=== PATIENT | male | born 1975 | race Caucasian/White ===

== ENCOUNTER 2017-03-18 10:22 | Emergency (ER) | payer OTHER ==
[~2017-03-18] VITALS: Ht 182.8 cm; Wt 140.6 kg
[~2017-03-18 10:22] MED LIST: AMLODIPINE5 MG PO; BACTRIM DS 8001 TA1 PO; BUSPAR10 MG PO; BUSPAR5 MG PO; CIPROFLOXACIN500 MG PO; COREG3.125 MG PO; DO NOT PROFILE T1 EA PO; IBUPROFEN600 MG PO; MOTRIN800 MG PO; NKHM; QUINAPRIL20 MG PO; ROBAXIN750 MG PO; ULTRAM50 MG PO; VICODIN 5/500 505 MG PO; VICODIN ES 7501 TAB PO; VOLTAREN50 M1 PO; ZITHROMAX Z PA250 MG PO
[2017-03-18] MEDS ORDERED: NORCO 5-325 TA1 EACH PO (12:39)
== END 2017-03-18 13:49 | disposition home or self-care (01) ==
LOC: ED 10:22
DX: S22.42XA Multiple fractures of ribs, left side, initial encounter for closed fracture (principal); F17.200 Nicotine dependence, unspecified, uncomplicated; Z79.899 Other long term (current) drug therapy; Z88.0 Allergy status to penicillin; W10.8XXA Fall (on) (from) other stairs and steps, initial encounter; Y93.89 Activity, other specified; Y92.89 Other specified places as the place of occurrence of the external cause; Y99.8 Other external cause status

== ENCOUNTER 2017-11-05 04:44 | Inpatient (IN) | payer OTHER ==
[2017-11-05] VITALS (11 sets, daily range): BP systolic 105–162; BP diastolic 56–109
[~2017-11-05] VITALS: Ht 182.8 cm; Wt 154.7 kg
--- NOTE | ~2017-11-05 | O ---
[place], [place] OPERATIVE NOTE [id number] UNIT #: [id number] ROOM: [facility] DOCTOR: AINSLEY CHISHOLM DO BIRTHDATE: [birth year] DOS: 11/06/2017 PREOPERATIVE DIAGNOSIS: Right medial and posterior malleolar fracture with widened ankle mortise and displaced talus. POSTOPERATIVE DIAGNOSIS: Right medial and posterior malleolar fracture with widened ankle mortise and displaced talus. OPERATIVE PROCEDURE: Medial malleolar fracture, open reduction and internal fixation with reduction of the talus and posterior malleolus and syndesmotic screw fixation. SURGEON: Ainsley Chisholm DO CAR RENTAL MANAGER: Khai Villalba ANESTHESIA: CONG Garcia, general endotracheal. INDICATIONS: The patient is a 42-year-old male with a history of a twisting injury to the right ankle, early 11/05/2017. The patient was intoxicated at the time of admission. The risks and benefits of the procedure were explained to the patient preoperatively including healing and rehabilitation. Preoperative labs and x-rays were obtained including preoperative optimization. DESCRIPTION OF PROCEDURE: The right ankle was evaluated in the holding room and marked preoperatively. The patient was brought to the operative suite, placed supine on the operative table and a general anesthetic with endotracheal intubation was performed. The patient received clindamycin 900 mg preoperatively. The ankle was evaluated under C-arm after prepped and draped in the usual orthopedic manner. The extremity was exsanguinated and the tourniquet was inflated to 350 mmHg. A medial incision was made and subcutaneous tissue was spread down to the level of the flexor retinaculum and the periosteum. There was noted to be a significant displacement of the medial malleolus and hemarthrosis was present. The flexor tendons were also noted to be displaced into the joint. The area was copiously irrigated with normal saline and the talus was reduced as was the medial malleolar fracture. Positioning was evaluated under C-arm in multiple planes. Two partially threaded K-wires were placed from distal to proximal through the medial malleolus and into the tibia. The positioning was evaluated under C-arm in multiple planes and found to be adequate. The lengths were measured. The cannulated drill was used over the K-wire and each K-wire was utilized to place a 15 mm cannulated screw. This was evaluated under C-arm and found to have an adequate reduction and positioning. The lateral side was then approached and a small 1-2 cm incision was made over the distal fibula metaphysis. Subcutaneous tissue was spread down to the level of the bone. A partially threaded K-wire was placed from lateral to medial through the fibula and into the tibial metaphyseal region. This was evaluated under C-arm in multiple planes. The length was measured. This was overdrilled with a cannulated drill and a single 72 mm cannulated screw was used to stabilize the ankle syndesmosis. When this was completed, the K-wires were [place], [place] OPERATIVE NOTE NAME: DEBRA MONTIEL UNIT #: [id number] ROOM: [facility] DOCTOR: AINSLEY CHISHOLM DO BIRTHDATE: [birth year] removed and the area was copiously irrigated with normal saline. Final x-ray was obtained in an AP and lateral position. The ankle was stressed both in inversion and eversion and found to be stable. The medial side of the ankle was closed using 4-0 Vicryl followed by 2-0 Vicryl and skin dano. The lateral incision was closed with 2-0 Vicryl and a single skin staple. The area about the incisions and the ankle joint itself were injected with Marcaine 0.5% plain. The dressing was completed with Xeroform, 4 x 4s, cast padding, ABDs, and a well-padded posterior splint with a sugar tong for medial and lateral stability. The dressing was completed with an Hilario bandage. Tourniquet was released prior to application of the splints. The anesthetic was reversed. The patient was extubated and taken to the recovery room in satisfactory condition. Sponge and needle count correct. ESTIMATED BLOOD LOSS: 10 mL. DRAINS: None. PACKING: None. COMPLICATIONS: None. FINDINGS: Medial malleolus fracture with widened mortise, posterior malleolar fracture and displaced talus. AINSLEY CHISHOLM DO CM:OPRECORD:OPERATIVE NOTE [id number] AINSLEY CHISHOLM DO 11/06/17 1827 interface
[~2017-11-05 04:44] MED LIST changes: +NORCO 5-325 TA1 EACH PO
[2017-11-05 05:33] LABS: BASO # 0.1 10*3/uL (0.0-0.1); BASO % 0.6 % (0.0-1.0); EOS # 0.3 10*3/uL (0.0-0.4); EOS % 3.7 % (1.0-4.0); HEMATOCRIT 41.4 % (42.0-52.0); HEMOGLOBIN 14.3 g/dl (14.0-18.0); LYMPH # 2.3 10*3/uL (1.3-4.4); LYMPH % 30.2 % (27.0-41.0); MEAN CELL VOLUME 87.7 fl (80.0-94.0); MEAN CORPUSCULAR HGB 30.3 pg (27.0-31.0); MEAN CORPUSCULAR HGB CONC 34.5 g/dl (33.0-37.0); MEAN PLATELET VOLUME 10.5 fl (9.6-12.3); MONO # 0.5 10*3/uL (0.1-1.0); MONO % 6.7 % (3.0-9.0); NEUT # 4.5 10*3/uL (2.3-7.9); NEUT % 58.4 % (47.0-73.0); PLATELET COUNT AUTOMATED 190 10*3/uL (130-400); RED BLOOD COUNT 4.72 10*6/uL (4.50-5.90); RED CELL DISTRI WIDTH 13.1 % (0-14.5); WHITE BLOOD COUNT 7.8 10*3/uL (4.8-10.8)
[2017-11-05 05:49] LABS: BILIRUBIN NEGATIVE (NEGATIVE); BLOOD NEGATIVE (NEGATIVE); CLARITY CLEAR (CLEAR); COLOR YELLOW (YELLOW); GLUCOSE NEGATIVE (NEGATIVE); KETONE NEGATIVE (NEGATIVE); LEUKO ESTERASE NEGATIVE (NEGATIVE); NITRITE NEGATIVE (NEGATIVE); SPECIFIC GRAVITY <= 1.005 (1.005-1.030)
[2017-11-05 05:51] LABS: ALBUMIN 3.6 gm/dl (3.1-4.5); ALKALINE PHOSPHATASE 105 U/L (45-117); BUN 12 mg/dl (7-24); CHLORIDE 89 mmol/L (98-107); CREATININE 0.92 mg/dL (0.70-1.30); POTASSIUM 3.3 mmol/L (3.5-5.1); SGOT/AST 27 IU/L (3-35); SGPT/ALT 30 U/L (12-78); SODIUM 127 mmol/L (136-145); TOTAL PROTEIN 7.2 gm/dL (6.4-8.2)
[2017-11-05 05:58] LABS: URINE AMPHETAMINES < 1000 (1000ng/ml); URINE BARBITURATES < 200 (200ng/ml); URINE BENZODIAZEPINES < 200 (200ng/ml); URINE CANNABINOIDS (THC) < 50 (50ng/ml); URINE COCAINE < 300 (300ng/ml); URINE METHADONE < 300 (300ng/ml); URINE OPIATES < 300 (300ng/ml); URINE PHENCYCLIDINE < 25 (25ng/ml)
[2017-11-05] MEDS ORDERED: CARVEDILOL25 MG PO (10:58)
[2017-11-05] MEDS ORDERED: CHLORTHALIDONE25 MG PO (10:58)
[2017-11-05] MEDS ORDERED: ALPRAZOLAM0.5 M3 PO (14:04)
[2017-11-05] MEDS ORDERED: AMLODIPINE BESY10 MG PO (14:04)
[2017-11-06] VITALS (13 sets, daily range): BP systolic 99–171; BP diastolic 61–109
[2017-11-06 06:50] LABS: BASO % 0.5 % (0.0-1.0); EOS # 0.2 10*3/uL (0.0-0.4); EOS % 2.6 % (1.0-4.0); HEMATOCRIT 42.9 % (42.0-52.0); HEMOGLOBIN 14.4 g/dl (14.0-18.0); LYMPH # 0.9 10*3/uL (1.3-4.4); LYMPH % 15.7 % (27.0-41.0); MEAN CELL VOLUME 90.1 fl (80.0-94.0); MEAN CORPUSCULAR HGB 30.3 pg (27.0-31.0); MEAN CORPUSCULAR HGB CONC 33.6 g/dl (33.0-37.0); MEAN PLATELET VOLUME 10.3 fl (9.6-12.3); MONO # 0.6 10*3/uL (0.1-1.0); MONO % 10.4 % (3.0-9.0); NEUT # 4.1 10*3/uL (2.3-7.9); NEUT % 70.5 % (47.0-73.0); PLATELET COUNT AUTOMATED 161 10*3/uL (130-400); RED BLOOD COUNT 4.76 10*6/uL (4.50-5.90); RED CELL DISTRI WIDTH 13.2 % (0-14.5); WHITE BLOOD COUNT 5.8 10*3/uL (4.8-10.8)
[2017-11-06 07:18] LABS: ACT PARTIAL THROMBO TIME 24.8 SECONDS (20.8-31.5)
[2017-11-06 07:25] LABS: BUN 13 mg/dl (7-24); CHLORIDE 100 mmol/L (98-107); CHOLESTEROL 182 mg/dL (<200); CREATININE 0.77 mg/dL (0.70-1.30); HDL CHOLESTEROL 44 mg/dl (40-60); LDL CHOLESTEROL 123 mg/dL (9-159); POTASSIUM 3.8 mmol/L (3.5-5.1); SODIUM 137 mmol/L (136-145); TRIGLYCERIDES 76 mg/dl (<150); VLDL CHOLESTEROL 15 mg/dL (6-40)
[2017-11-06 08:16] LABS: VITAMIN D, 25-HYDROXY 18.7 ng/mL (30-100)
[2017-11-06] MEDS ORDERED: ASPIR-TRIN325 MG PO (10:23)
[2017-11-06] MEDS ORDERED: ZOLOFT100 MG PO (10:30)
[2017-11-07] VITALS: BP 126/81
[2017-11-07 06:30] LABS: BASO % 0.3 % (0.0-1.0); EOS # 0.2 10*3/uL (0.0-0.4); EOS % 2.2 % (1.0-4.0); HEMATOCRIT 40.4 % (42.0-52.0); HEMOGLOBIN 13.4 g/dl (14.0-18.0); LYMPH # 0.9 10*3/uL (1.3-4.4); LYMPH % 9.6 % (27.0-41.0); MEAN CORPUSCULAR HGB 30.5 pg (27.0-31.0); MEAN CORPUSCULAR HGB CONC 33.2 g/dl (33.0-37.0); MEAN PLATELET VOLUME 10.8 fl (9.6-12.3); MONO # 0.9 10*3/uL (0.1-1.0); MONO % 9.9 % (3.0-9.0); NEUT # 6.9 10*3/uL (2.3-7.9); NEUT % 77.6 % (47.0-73.0); PLATELET COUNT AUTOMATED 153 10*3/uL (130-400); RED BLOOD COUNT 4.39 10*6/uL (4.50-5.90); RED CELL DISTRI WIDTH 13.4 % (0-14.5)
[2017-11-07 07:06] LABS: BUN 14 mg/dl (7-24); CHLORIDE 102 mmol/L (98-107); POTASSIUM 3.9 mmol/L (3.5-5.1); SODIUM 138 mmol/L (136-145)
[2017-11-07 07:08] LABS: CREATININE 0.85 mg/dL (0.70-1.30)
[2017-11-07 07:45] VITALS: BP 138/86
[2017-11-07 12:00] VITALS: BP 106/70
[2017-11-07 16:00] VITALS: BP 118/66
[2017-11-07] MEDS ORDERED: VITAMIN D-32000 UNIT PO (17:11)
== END 2017-11-07 18:14 | disposition home or self-care (01) | DRG 493 ==
LOC: ED 04:44 → EDHOLD 07:03 → 5E 07:03
PROVIDERS: Emergency Medicine Emergency Medical Services; Internal Medicine; Internal Medicine Nephrology
PROC: 0SSFXZZ Reposition Right Ankle Joint, External Approach (ICD-10-PCS; principal; 2017-11-05)
PROC: 2W3QX1Z Immobilization of Right Lower Leg using Splint (ICD-10-PCS; principal; 2017-11-05)
PROC: 0QSG04Z Reposition Right Tibia with Internal Fixation Device, Open Approach (ICD-10-PCS; 2017-11-06)
DX: S82.51XA Displaced fracture of medial malleolus of right tibia, initial encounter for closed fracture (principal); E87.1 Hypo-osmolality and hyponatremia; E87.8 Other disorders of electrolyte and fluid balance, not elsewhere classified; E83.51 Hypocalcemia; L40.9 Psoriasis, unspecified; F17.210 Nicotine dependence, cigarettes, uncomplicated; E87.6 Hypokalemia; R79.9 Abnormal finding of blood chemistry, unspecified; R00.0 Tachycardia, unspecified; F10.129 Alcohol abuse with intoxication, unspecified; I48.0 Paroxysmal atrial fibrillation; I10 Essential (primary) hypertension; Y90.8 Blood alcohol level of 240 mg/100 ml or more; F41.9 Anxiety disorder, unspecified; F32.9 Major depressive disorder, single episode, unspecified; W01.0XXA Fall on same level from slipping, tripping and stumbling without subsequent striking against object, initial encounter; Z88.0 Allergy status to penicillin; Z71.6 Tobacco abuse counseling; Z87.81 Personal history of (healed) traumatic fracture; Z79.01 Long term (current) use of anticoagulants; Z79.899 Other long term (current) drug therapy; Y93.89 Activity, other specified; Y92.89 Other specified places as the place of occurrence of the external cause; Y99.8 Other external cause status

== ENCOUNTER 2017-11-18 12:58 | Emergency (ER) | payer OTHER ==
[~2017-11-18] VITALS: Ht 182.8 cm; Wt 136.1 kg
--- NOTE | ~2017-11-18 | EKG ---
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
[2017-11-18 13:59] LABS: BASO # 0.1 10*3/uL (0.0-0.1); BASO % 0.6 % (0.0-1.0); EOS # 0.2 10*3/uL (0.0-0.4); EOS % 2.7 % (1.0-4.0); HEMATOCRIT 40.9 % (42.0-52.0); HEMOGLOBIN 13.9 g/dl (14.0-18.0); LYMPH # 1.3 10*3/uL (1.3-4.4); MEAN CELL VOLUME 89.7 fl (80.0-94.0); MEAN CORPUSCULAR HGB 30.5 pg (27.0-31.0); MEAN PLATELET VOLUME 9.8 fl (9.6-12.3); MONO # 0.3 10*3/uL (0.1-1.0); MONO % 3.9 % (3.0-9.0); NEUT # 6.5 10*3/uL (2.3-7.9); PLATELET COUNT AUTOMATED 342 10*3/uL (130-400); RED BLOOD COUNT 4.56 10*6/uL (4.50-5.90); RED CELL DISTRI WIDTH 12.6 % (0-14.5); WHITE BLOOD COUNT 8.4 10*3/uL (4.8-10.8)
[2017-11-18 14:09] LABS: ACT PARTIAL THROMBO TIME 22.3 SECONDS (20.8-31.5)
[2017-11-18 14:15] LABS: ALKALINE PHOSPHATASE 119 U/L (45-117); BUN 29 mg/dl (7-24); CHLORIDE 102 mmol/L (98-107); CREATININE 1.57 mg/dL (0.70-1.30); LIPASE 430 U/L (73-393); POTASSIUM 4.1 mmol/L (3.5-5.1); SGOT/AST 20 IU/L (3-35); SGPT/ALT 32 U/L (12-78); SODIUM 136 mmol/L (136-145)
[2017-11-18 14:18] LABS: TROPONIN I < 0.015 ng/ml (<0.045)
== END 2017-11-18 14:43 | disposition left against medical advice (07) ==
LOC: ED 12:58
PROVIDERS: Emergency Medicine
DX: I12.9 Hypertensive chronic kidney disease with stage 1 through stage 4 chronic kidney disease, or unspecified chronic kidney disease (principal); N18.9 Chronic kidney disease, unspecified; E86.0 Dehydration; I95.9 Hypotension, unspecified; R42 Dizziness and giddiness; I48.0 Paroxysmal atrial fibrillation; F17.200 Nicotine dependence, unspecified, uncomplicated; Z88.0 Allergy status to penicillin; Z79.899 Other long term (current) drug therapy; Z79.82 Long term (current) use of aspirin

== ENCOUNTER → 2017-11-18 | Outpatient (CLI) | payer OTHER ==
[~2017-11-18] MED LIST changes: +ALPRAZOLAM0.5 M3 PO; +AMLODIPINE BESY10 MG PO; +ASPIR-TRIN325 MG PO; +CARVEDILOL25 MG PO; +CHLORTHALIDONE25 MG PO; +VITAMIN D-32000 UNIT PO; +ZOLOFT100 MG PO
== END | disposition home or self-care (01) ==
LOC: ORTHO 03:32
DX: S82.51XD Displaced fracture of medial malleolus of right tibia, subsequent encounter for closed fracture with routine healing (principal); S93.01XD Subluxation of right ankle joint, subsequent encounter; Z91.81 History of falling; X58.XXXD Exposure to other specified factors, subsequent encounter

== ENCOUNTER → 2017-11-26 | Outpatient (CLI) | payer OTHER ==
[2017-11-26 11:47] LABS: BASO # 0.1 10*3/uL (0.0-0.1); BASO % 0.6 % (0.0-1.0); EOS # 0.2 10*3/uL (0.0-0.4); EOS % 2.4 % (1.0-4.0); HEMATOCRIT 43.8 % (42.0-52.0); HEMOGLOBIN 14.7 g/dl (14.0-18.0); LYMPH # 1.5 10*3/uL (1.3-4.4); LYMPH % 17.8 % (27.0-41.0); MEAN CELL VOLUME 89.4 fl (80.0-94.0); MEAN CORPUSCULAR HGB CONC 33.6 g/dl (33.0-37.0); MEAN PLATELET VOLUME 10.4 fl (9.6-12.3); MONO # 0.5 10*3/uL (0.1-1.0); MONO % 5.7 % (3.0-9.0); NEUT # 6.2 10*3/uL (2.3-7.9); NEUT % 73.1 % (47.0-73.0); PLATELET COUNT AUTOMATED 288 10*3/uL (130-400); RED CELL DISTRI WIDTH 13.2 % (0-14.5); WHITE BLOOD COUNT 8.4 10*3/uL (4.8-10.8)
== END | disposition home or self-care (01) ==
LOC: ORTHO 03:24 → LAB 08:00 → ORTHO 16:38
PROVIDERS: Orthopaedic Surgery
DX: T81.31XA Disruption of external operation (surgical) wound, not elsewhere classified, initial encounter (principal)

== ENCOUNTER → 2017-12-11 | Outpatient (CLI) | payer OTHER ==
[2017-12-11 16:14] LABS: BASO # 0.1 10*3/uL (0.0-0.1); EOS # 0.2 10*3/uL (0.0-0.4); EOS % 3.4 % (1.0-4.0); HEMOGLOBIN 14.7 g/dl (14.0-18.0); LYMPH # 1.7 10*3/uL (1.3-4.4); LYMPH % 27.8 % (27.0-41.0); MEAN CELL VOLUME 93.6 fl (80.0-94.0); MEAN CORPUSCULAR HGB 30.6 pg (27.0-31.0); MEAN CORPUSCULAR HGB CONC 32.7 g/dl (33.0-37.0); MEAN PLATELET VOLUME 10.7 fl (9.6-12.3); MONO # 0.4 10*3/uL (0.1-1.0); NEUT # 3.8 10*3/uL (2.3-7.9); NEUT % 61.6 % (47.0-73.0); PLATELET COUNT AUTOMATED 218 10*3/uL (130-400); RED BLOOD COUNT 4.81 10*6/uL (4.50-5.90); RED CELL DISTRI WIDTH 13.9 % (0-14.5); WHITE BLOOD COUNT 6.2 10*3/uL (4.8-10.8)
[2017-12-11 16:44] LABS: BUN 14 mg/dl (7-24); CHLORIDE 106 mmol/L (98-107); CREATININE 1.11 mg/dL (0.70-1.30); POTASSIUM 3.5 mmol/L (3.5-5.1); SODIUM 141 mmol/L (136-145)
== END | disposition home or self-care (01) ==
LOC: ORTHO 04:03
PROVIDERS: Orthopaedic Surgery
DX: S82.891D Other fracture of right lower leg, subsequent encounter for closed fracture with routine healing (principal); T81.31XD Disruption of external operation (surgical) wound, not elsewhere classified, subsequent encounter; X58.XXXD Exposure to other specified factors, subsequent encounter

== ENCOUNTER → 2018-01-28 | Outpatient (CLI) | payer OTHER ==
[~2018-01-28] MED LIST changes: +ZOFRAN4 MG PO
== END | disposition home or self-care (01) ==
LOC: ORTHO 04:41
DX: Z47.89 Encounter for other orthopedic aftercare (principal); S82.51XD Displaced fracture of medial malleolus of right tibia, subsequent encounter for closed fracture with routine healing; X58.XXXD Exposure to other specified factors, subsequent encounter

== ENCOUNTER → 2018-01-29 | Day surgery (SDC) | payer OTHER ==
[2018-01-24 12:34] LABS: BASO % 0.6 % (0.0-1.0); EOS # 0.3 10*3/uL (0.0-0.4); EOS % 4.4 % (1.0-4.0); HEMATOCRIT 45.4 % (42.0-52.0); HEMOGLOBIN 15.1 g/dl (14.0-18.0); LYMPH % 30.5 % (27.0-41.0); MEAN CELL VOLUME 92.5 fl (80.0-94.0); MEAN CORPUSCULAR HGB 30.8 pg (27.0-31.0); MEAN CORPUSCULAR HGB CONC 33.3 g/dl (33.0-37.0); MEAN PLATELET VOLUME 10.3 fl (9.6-12.3); MONO # 0.5 10*3/uL (0.1-1.0); MONO % 7.7 % (3.0-9.0); NEUT # 3.7 10*3/uL (2.3-7.9); NEUT % 56.3 % (47.0-73.0); PLATELET COUNT AUTOMATED 201 10*3/uL (130-400); RED BLOOD COUNT 4.91 10*6/uL (4.50-5.90); RED CELL DISTRI WIDTH 14.3 % (0-14.5); WHITE BLOOD COUNT 6.6 10*3/uL (4.8-10.8)
[2018-01-24 12:48] LABS: POTASSIUM 3.4 mmol/L (3.5-5.1)
[~2018-01-29] VITALS: Ht 182.8 cm; Wt 136.1 kg
--- NOTE | ~2018-01-29 | O ---
[place], [place] OPERATIVE NOTE NAME: DEBRA MONTIEL [facility] #: [id number] UNIT #: [id number] ROOM: DOCTOR: AINSLEY CHISHOLM DO BIRTHDATE: [birth year] DOS: 01/29/2018 PREPROCEDURE DIAGNOSIS: Right ankle retained syndesmotic screw. POSTPROCEDURE DIAGNOSIS: Right ankle retained syndesmotic screw. OPERATIVE PROCEDURE: Right ankle removal of retained syndesmotic screw. SURGEON: Ainsley Chisholm DO. EDUCATION REPORTER: Anastasia. ANESTHESIA: CONG Garcia. INDICATIONS: The patient is a 42-year-old male with a history of a fracture dislocation of the right ankle, underwent open reduction and internal fixation with a syndesmotic screw fixation approximately 3 months ago. The patient has been nonweightbearing. He did have difficulty healing his wounds, but they are healed at this point. He does have difficulty with skin integrity as he has psoriasis. The risks and benefits of the procedure were explained to the patient preoperatively. Preoperative labs and x-rays were obtained. DESCRIPTION OF PROCEDURE: The right ankle was marked in the holding room. The patient was brought to the operative suite. A general anesthetic with intubation was performed. The timeout was performed. The patient received clindamycin as a preoperative antibiotic. The right lower extremity was prepped and draped in the usual orthopedic fashion. The extremity was elevated. The tourniquet was inflated to 350 mmHg. The C-arm was utilized to locate the location of the syndesmotic screw, which went from lateral to medial. The area was marked with a marking pen. An incision was made sharply with a scalpel approximately 2 cm in length. Subcutaneous tissue was spread down to the level of the syndesmotic screw. There was minimal heterotopic bone ossification and this was debrided using a rongeur and a [place] elevator. The screw was identified and removed in its entirety. The screw hole was curetted and a culture was obtained, although there was no evidence of purulence. The area was copiously irrigated with normal saline. The wound was closed with a 2-0 Vicryl followed by 4-0 Vicryl. The area was injected with Marcaine 0.25% with epinephrine. The wound was dressed with Xeroform, 4 x 4s, and an ABD. The tourniquet was released. The dressing was continued with cast padding and an Hilario. The anesthetic was reversed. The patient was extubated and taken to recovery room in satisfactory condition. Sponge and needle count correct. ESTIMATED BLOOD LOSS: None. DRAINS: None. [place], [place] OPERATIVE NOTE NAME: DEBRA MONTIEL UNIT #: [id number] ROOM: DOCTOR: AINSLEY CHISHOLM DO BIRTHDATE: [birth year] PACKING: None. COMPLICATIONS: None. SPECIMENS: Cultures were obtained and the screw was sent to the lab. AINSLEY CHISHOLM DO CM:OPRECORD:OPERATIVE NOTE [id number] AINSLEY CHISHOLM DO 01/29/18 1142 interface
[2018-01-29 06:35] VITALS: BP 145/100
[2018-01-29 08:39] VITALS: BP 111/88
[2018-01-29 08:54] VITALS: BP 120/94
[2018-01-29 09:09] VITALS: BP 126/96
[2018-01-29 09:24] VITALS: BP 130/99
[2018-01-29 09:34] VITALS: BP 130/99
== END | disposition home or self-care (01) ==
LOC: SDC 01-22 10:15
PROVIDERS: Orthopaedic Surgery
DX: Z47.2 Encounter for removal of internal fixation device (principal); I48.91 Unspecified atrial fibrillation; I10 Essential (primary) hypertension; F41.8 Other specified anxiety disorders; E66.01 Morbid (severe) obesity due to excess calories; F17.210 Nicotine dependence, cigarettes, uncomplicated; Z68.41 Body mass index [BMI] 40.0-44.9, adult; Z98.890 Other specified postprocedural states; Z88.1 Allergy status to other antibiotic agents; Z88.0 Allergy status to penicillin; Z79.899 Other long term (current) drug therapy

== ENCOUNTER → 2018-02-26 | Outpatient (CLI) | payer OTHER | END | disposition home or self-care (01) | LOC: ORTHO 02:57 | DX: S82.891D Other fracture of right lower leg, subsequent encounter for closed fracture with routine healing (principal); X58.XXXD Exposure to other specified factors, subsequent encounter ==

== ENCOUNTER 2019-02-10 10:39 | Emergency (ER) | payer OTHER ==
[~2019-02-10] VITALS: Ht 185.4 cm; Wt 167.8 kg
== END 2019-02-10 11:26 | disposition home or self-care (01) ==
LOC: ED 10:39
DX: H11.421 Conjunctival edema, right eye (principal); F17.200 Nicotine dependence, unspecified, uncomplicated; Z88.0 Allergy status to penicillin; Z79.899 Other long term (current) drug therapy; Z79.82 Long term (current) use of aspirin

== ENCOUNTER 2019-04-12 14:08 | Inpatient (IN) | payer OTHER ==
[~2019-04-12] VITALS: Ht 182.9 cm; Wt 180.3 kg
[2019-04-12 14:09] VITALS: BP 154/103
[2019-04-12 14:53] LABS: BASO # 0.1 10*3/uL (0.0-0.1); BASO % 0.6 % (0.0-1.0); EOS # 0.1 10*3/uL (0.0-0.4); EOS % 0.9 % (1.0-4.0); HEMATOCRIT 48.1 % (42.0-52.0); HEMOGLOBIN 15.1 g/dl (14.0-18.0); LYMPH # 1.1 10*3/uL (1.3-4.4); LYMPH % 13.2 % (27.0-41.0); MEAN CELL VOLUME 99.2 fl (80.0-94.0); MEAN CORPUSCULAR HGB 31.1 pg (27.0-31.0); MEAN CORPUSCULAR HGB CONC 31.4 g/dl (33.0-37.0); MEAN PLATELET VOLUME 10.1 fl (9.6-12.3); MONO # 0.6 10*3/uL (0.1-1.0); MONO % 7.2 % (3.0-9.0); NEUT # 6.8 10*3/uL (2.3-7.9); NEUT % 77.9 % (47.0-73.0); NUCLEATED RED BLOOD CELL 0.2 % (0.0-0.0); PLATELET COUNT AUTOMATED 244 10*3/uL (130-400); RED BLOOD COUNT 4.85 10*6/uL (4.50-5.90); RED CELL DISTRI WIDTH 14.5 % (0-14.5); WHITE BLOOD COUNT 8.7 10*3/uL (4.8-10.8)
[2019-04-12 15:04] LABS: ACT PARTIAL THROMBO TIME 30.5 SECONDS (20.0-32.1); INTERNATIONAL NORM RATIO 1.2 (2.0-3.5)
[2019-04-12 15:08] LABS: ALBUMIN 2.9 gm/dl (3.1-4.5); ALKALINE PHOSPHATASE 147 U/L (45-117); BUN 10 mg/dl (7-24); CHLORIDE 101 mmol/L (98-107); CREATININE 1.01 mg/dL (0.70-1.30); LIPASE 194 U/L (73-393); POTASSIUM 4.2 mmol/L (3.5-5.1); SGOT/AST 50 IU/L (3-35); SGPT/ALT 47 U/L (12-78); SODIUM 137 mmol/L (136-145); TOTAL PROTEIN 6.8 gm/dL (6.4-8.2)
--- NOTE | 2019-04-12 15:10 | NUR ---
TROPONIN OF 1.730. DR. IRAHETA AWARE OF CRIITCAL VALUE.
--- NOTE | 2019-04-12 15:25 | NUR ---
US SHOWS NO EVIDENCE OF DVT.
--- NOTE | 2019-04-12 15:30 | NUR ---
PT REFUSING TO WEAR GOWN.
[2019-04-12 15:40] VITALS: BP 162/80; BP 172/80
[2019-04-12 17:12] VITALS: BP 132/89
--- NOTE | 2019-04-12 17:12 | NUR ---
A 44, admitted to , under the services of ARNEL Laura DO with a diagnosis of ELEVATED TROPONINS AND RIGHT LEG CELLULITIS. Chief complaint is PAIN IN RIGHT LEG. Patient arrived via bed from ER. Monitor applied. Initial assessment completed. Vital signs taken and recorded. DR. RABAGO AT BEDSIDE FOR ASSESSMENT ON ADMISSION. Orders received. See assessment for past medical history, medications and allergies. Patient and/or family oriented to . visitation policy reviewed. Clothing/patient valuable form completed. JORDAN FRIEND RN
[2019-04-12] MEDS ORDERED: FLECAINIDE ACE100 M1 PO (17:32)
[2019-04-12] MEDS ORDERED: DILTIAZEM HCL300 M1 PO (17:32)
[2019-04-12] MEDS ORDERED: XARELTO20 M1 PO (17:33)
--- NOTE | 2019-04-12 19:30 | NUR ---
DR SRINIVASAN HERE - HOME MEDS UPDATED IN MED REC AGAINST PILL BOTTLES & DISCUSSION WITH PATIENT &
[2019-04-12 19:43] LABS: ABG BASE EXCESS 7.3 mmol/L (-2.0-2.0); ARTERIAL BLOOD GAS PH 7.435 (7.35-7.45)
--- NOTE | 2019-04-12 19:55 | NUR ---
CONSULT CALLED TO TORITO SOARES ORDERS RECIEVED.
[2019-04-12 20:00] VITALS: BP 147/94
--- NOTE | 2019-04-12 20:45 | NUR ---
Pt. took off BIPAP at 2044 due to discomfort.
--- NOTE | 2019-04-12 22:51 | NUR ---
PATIENT IS REFUSING TO WEAR BIPAP AT THIS TIME SAYS ITS UNCOMFORTABLE.
[2019-04-13] VITALS: BP 138/78
[2019-04-13 04:01] VITALS: BP 158/99
[2019-04-13 06:56] LABS: HEMATOCRIT 48.5 % (42.0-52.0); HEMOGLOBIN 14.9 g/dl (14.0-18.0); MEAN CELL VOLUME 98.4 fl (80.0-94.0); MEAN CORPUSCULAR HGB 30.2 pg (27.0-31.0); MEAN CORPUSCULAR HGB CONC 30.7 g/dl (33.0-37.0); MEAN PLATELET VOLUME 10.4 fl (9.6-12.3); NUCLEATED RED BLOOD CELL 0.3 % (0.0-0.0); PLATELET COUNT AUTOMATED 268 10*3/uL (130-400); RED BLOOD COUNT 4.93 10*6/uL (4.50-5.90); RED CELL DISTRI WIDTH 14.5 % (0-14.5); WHITE BLOOD COUNT 7.5 10*3/uL (4.8-10.8)
[2019-04-13 07:12] LABS: ALBUMIN 2.8 gm/dl (3.1-4.5); BUN 9 mg/dl (7-24); CHLORIDE 103 mmol/L (98-107); CHOLESTEROL 139 mg/dL (<200); HDL CHOLESTEROL 39 mg/dl (40-60); POTASSIUM 4.2 mmol/L (3.5-5.1); SGOT/AST 43 IU/L (3-35); SGPT/ALT 47 U/L (12-78); SODIUM 137 mmol/L (136-145)
[2019-04-13 07:18] LABS: ALKALINE PHOSPHATASE 146 U/L (45-117); CREATININE 0.96 mg/dL (0.70-1.30); FREE T4 1.17 ng/dl (0.76-1.46); LDL CHOLESTEROL 86 mg/dL (9-159); TOTAL PROTEIN 6.9 gm/dL (6.4-8.2); TRIGLYCERIDES 72 mg/dl (<150); VLDL CHOLESTEROL 14 mg/dL (6-40)
--- NOTE | 2019-04-13 07:29 | NUR ---
DR MULLER IN TO SEE PATIENT.
--- NOTE | 2019-04-13 07:32 | NUR ---
PTT 57.9, NO CHANGE IN HEPARIN INFUSION RATE. REPEAT PTT ORDERED FOR AM PER HEPARIN PROTOCOL POLICY.
[2019-04-13 07:35] LABS: TOTAL CELLS COUNTED 100 #CELLS
[2019-04-13 07:36] LABS: PLATELET SUFFICIENCY NORMAL (NORMAL); POLYCHROMASIA SLIGHT
--- NOTE | 2019-04-13 07:38 | NUR ---
Shift chart check completed.24 HR chart check completed.
--- NOTE | 2019-04-13 07:51 | NUR ---
DR SRINIVASAN WILL MAKE ARRANGEMENTS FOR PT TO HAVE HEART CATH TOMORROW AT [facility].
[2019-04-13 08:00] VITALS: BP 154/100
--- NOTE | 2019-04-13 08:29 | NUR ---
ON ASSESSMENT PATIENT CAN'T KEEP HIS EYES OPEN TO CONVERSE BUT DOES ANSWER APPROPRIATELY AFTER QUESTION REPEATED. HE HAS OCCASIONAL JERKING/SNORING. HEPARIN DRIP AT 14UNITS/KG/HR AND PTT THIS AM IS THERAPEUTIC. RT LOWER LEG IS LARGER AND REDDER THAN LEFT. SEE ALL APPROPRIATE INTERVENTIONS.
[2019-04-13 08:35] LABS: VITAMIN D, 25-HYDROXY 13.7 ng/mL (30-100)
--- NOTE | 2019-04-13 09:00 | NUR ---
DR. UGARTE INFORMED PT NOT USING BIPAP.
--- NOTE | 2019-04-13 09:59 | NUR ---
ECHO BEING DONE AT THE BEDSIDE.
--- NOTE | 2019-04-13 10:30 | NUR ---
Striper Machine in to see patient. Nurse in room states patient will be transferred to [facility] in the am for a heart cath.
--- NOTE | 2019-04-13 11:34 | NUR ---
PT SLEEPS MOST OF THE TIME. NO DYSRHYTHMIAS OR RESPIRATORY DISTRESS.
[2019-04-13 12:00] VITALS: BP 148/99
[2019-04-13 16:00] VITALS: BP 154/106
--- NOTE | 2019-04-13 16:40 | NUR ---
HAVE NOT HAD ANY CALLS FROM [facility] ABOUT SCHEDULED HEART CATH. PHARM TECH HAS CALLED THE [facility] AND THEY ARE ATTEMPTING TO REACH DR SRINIVASAN'S OFFICE.
--- NOTE | 2019-04-13 17:03 | NUR ---
DR SRINIVASAN'S OFFICE CALLED ME. PT TO ARRIVE TOMORROW IN THE IMPORT CUSTOMER SERVICE MANAGER BY 0930.
--- NOTE | 2019-04-13 17:11 | NUR ---
REPORT TO THE ED TEACHER NURSE. VERIFIED MEDS TO GIVE IN AM.
--- NOTE | 2019-04-13 18:24 | NUR ---
[facility] WILL PICK PT UP AT 0815.
--- NOTE | 2019-04-13 18:37 | NUR ---
PT EATING DINNER AT THIS TIME. RESTING HR 94.
[2019-04-13 20:00] VITALS: BP 128/70
--- NOTE | 2019-04-13 23:00 | NUR ---
Pt is refusing to wear the BiPap.
[2019-04-14] VITALS: BP 123/82
[2019-04-14 04:00] VITALS: BP 151/104
--- NOTE | 2019-04-14 07:02 | NUR ---
Message left with [employer] for prior authorization to transfer patient to [facility] for heart cath. Awaiting return call.
--- NOTE | 2019-04-14 07:35 | NUR ---
Attempted to reach out to [employer] case management department for prior authorization for transfer to [facility] for heart cath. They currently are closed with no hours on their voicemail. Message left. Awaiting return call.
[2019-04-14 08:00] VITALS: BP 165/102
--- NOTE | 2019-04-14 08:33 | NUR ---
Spoke to Melissa at [employer] regarding prior authorization for heart cath at [facility]. Auth # [id number]. Notified kofi baptiste. Spoke to Josi at [facility] regarding prior authorization. Given clinical fax number of [phone]. Read back and verified.
--- NOTE | 2019-04-14 08:38 | NUR ---
PT TRANSFERED TO [facility] VIA AMBULANCE.
== END 2019-04-14 08:38 | disposition other institution (70) | DRG 280 ==
LOC: ED 14:08 → EDHOLD 16:14 → ICCU 16:14 → 4E 16:54 → ICCU 19:41
PROVIDERS: Internal Medicine; Nurse Practitioner Family; ADMIT Internal Medicine
DX: I21.4 Non-ST elevation (NSTEMI) myocardial infarction (principal); J18.9 Pneumonia, unspecified organism; L03.115 Cellulitis of right lower limb; E44.0 Moderate protein-calorie malnutrition; E87.3 Alkalosis; J44.1 Chronic obstructive pulmonary disease with (acute) exacerbation; Z68.43 Body mass index [BMI] 50.0-59.9, adult; J44.0 Chronic obstructive pulmonary disease with (acute) lower respiratory infection; I48.0 Paroxysmal atrial fibrillation; F41.9 Anxiety disorder, unspecified; F32.9 Major depressive disorder, single episode, unspecified; F10.20 Alcohol dependence, uncomplicated; G47.33 Obstructive sleep apnea (adult) (pediatric); L40.9 Psoriasis, unspecified; I10 Essential (primary) hypertension; E66.01 Morbid (severe) obesity due to excess calories; R06.89 Other abnormalities of breathing; J45.909 Unspecified asthma, uncomplicated; F17.210 Nicotine dependence, cigarettes, uncomplicated; Z79.899 Other long term (current) drug therapy; Z88.0 Allergy status to penicillin; Z87.81 Personal history of (healed) traumatic fracture; Z79.82 Long term (current) use of aspirin; Z71.6 Tobacco abuse counseling

== ENCOUNTER 2019-05-13 18:39 | Inpatient (IN) | payer OTHER ==
[~2019-05-13] VITALS: Ht 182.8 cm; Wt 180.7 kg
[~2019-05-13 18:39] MED LIST changes: +DILTIAZEM HCL300 M1 PO; +FLECAINIDE ACE100 M1 PO; +XARELTO20 M1 PO
[2019-05-13 18:55] VITALS: BP 167/111
[2019-05-13 19:16] VITALS: BP 183/99
[2019-05-13 19:30] LABS: BASO % 0.6 % (0.0-1.0); EOS # 0.2 10*3/uL (0.0-0.4); EOS % 3.7 % (1.0-4.0); HEMATOCRIT 54.2 % (42.0-52.0); HEMOGLOBIN 16.8 g/dl (14.0-18.0); LYMPH % 15.1 % (27.0-41.0); MEAN CELL VOLUME 98.4 fl (80.0-94.0); MEAN CORPUSCULAR HGB 30.5 pg (27.0-31.0); MEAN PLATELET VOLUME 10.9 fl (9.6-12.3); MONO # 0.4 10*3/uL (0.1-1.0); MONO % 5.3 % (3.0-9.0); NEUT # 4.9 10*3/uL (2.3-7.9); NEUT % 74.8 % (47.0-73.0); PLATELET COUNT AUTOMATED 241 10*3/uL (130-400); RED BLOOD COUNT 5.51 10*6/uL (4.50-5.90); RED CELL DISTRI WIDTH 15.2 % (0-14.5); WHITE BLOOD COUNT 6.6 10*3/uL (4.8-10.8)
[2019-05-13] MEDS ORDERED: CEFUROXIME AXE500 MG PO (19:39)
[2019-05-13] MEDS ORDERED: ALPRAZOLAM0.5 M3 PO (19:40)
[2019-05-13] MEDS ORDERED: FUROSEMIDE40 MG PO (19:40)
--- NOTE | 2019-05-13 19:41 | NUR ---
PT O2 INCREASED TO 3L VIA NC.PT HX SLEEP APNEA, FALLS ASLEEP IS A MOUTH BREATHER.O2 SAT DROPS TO 88%.RESPIRATORY AT BEDSIDE TO ADMINISTER BREATHING TX.
[2019-05-13 19:46] LABS: ACT PARTIAL THROMBO TIME 32.5 SECONDS (20.0-32.1); INTERNATIONAL NORM RATIO 1.1 (2.0-3.5)
[2019-05-13 19:52] LABS: ALBUMIN 3.2 gm/dl (3.1-4.5); ALKALINE PHOSPHATASE 187 U/L (45-117); BUN 9 mg/dl (7-24); CHLORIDE 103 mmol/L (98-107); CREATININE 1.07 mg/dL (0.70-1.30); POTASSIUM 3.9 mmol/L (3.5-5.1); SGOT/AST 28 IU/L (3-35); SGPT/ALT 30 U/L (12-78); SODIUM 139 mmol/L (136-145); TOTAL PROTEIN 7.3 gm/dL (6.4-8.2); TROPONIN I 0.019 ng/ml (<0.045)
[2019-05-13 20:14] VITALS: BP 147/95
[2019-05-13 21:47] VITALS: BP 132/88
--- NOTE | 2019-05-13 21:47 | NUR ---
PT RESTING IN ROOM WITH EYES CLOSED, SNORING.
[2019-05-13 22:08] VITALS: BP 161/92
--- NOTE | 2019-05-13 22:10 | NUR ---
PT UPDATED ON CURRENT PLAN OF CARE.PT OFFERED HOSPITAL BED.PT DENIES BED AT THIS TIME.URINE OUTPUT OF 500CC OBTAINED AND DOCUMENTED.
[2019-05-13 22:44] VITALS: BP 129/76
--- NOTE | 2019-05-13 23:44 | NUR ---
SUPER[employer]OR [employer] CONTACTED TO FILL ORDER OF MEROPENEM ON EMAR.
[2019-05-14] VITALS (9 sets, daily range): BP systolic 103–147; BP diastolic 64–92
--- NOTE | 2019-05-14 00:20 | NUR ---
INFUSION OF MEROPENEM INITIATED PER EMAR.
--- NOTE | 2019-05-14 01:39 | NUR ---
INFUSION OF VANCOMYCIN INITIATED PER EMAR.2GM VANCOMYCIN INFUSING @ 200ML/HR.
--- NOTE | 2019-05-14 01:45 | NUR ---
INFUSION OF LITER NS INITIATED BY EMS COMPLETED AT THIS TIME.MD FOX NOTIFIED.PER MD FOX VERBAL ORDER, ORDER FOR NS ON HOLD AT THIS TIME.
--- NOTE | 2019-05-14 05:17 | NUR ---
VITALS REASSESSED.PT RESTING IN BED WITH EYES CLOSED.BEDSIDE URINAL EMPTIED WITH APPROX 350CC URINE OUTPUT.VANCOMYCIN CONTINUES TO INFUSE.
--- NOTE | 2019-05-14 06:23 | NUR ---
ATTEMPTED TO CALL DR. SRINIVASAN X2 WITH NO ANSWER, UNABLE TO LEAVE A VOICE MAIL
--- NOTE | 2019-05-14 06:43 | NUR ---
DR. SRINIVASAN CALLED AND IS AWARE OF CONSULT, STATES HE WILL SEE HIM THIS AFTERNOON
--- NOTE | 2019-05-14 08:30 | NUR ---
PHARMACY AWARE OF NEEDING MEROPENEM, VANCOMYCIN, AND LISINOPRIL. PHARMACY STATES THEY WILL DELIVER TO ED.
[2019-05-14 09:14] LABS: BASO % 0.7 % (0.0-1.0); EOS # 0.3 10*3/uL (0.0-0.4); EOS % 5.1 % (1.0-4.0); HEMATOCRIT 49.6 % (42.0-52.0); HEMOGLOBIN 15.1 g/dl (14.0-18.0); LYMPH % 15.9 % (27.0-41.0); MEAN CELL VOLUME 99.8 fl (80.0-94.0); MEAN CORPUSCULAR HGB 30.4 pg (27.0-31.0); MEAN CORPUSCULAR HGB CONC 30.4 g/dl (33.0-37.0); MEAN PLATELET VOLUME 10.6 fl (9.6-12.3); MONO # 0.4 10*3/uL (0.1-1.0); MONO % 6.9 % (3.0-9.0); NEUT # 4.3 10*3/uL (2.3-7.9); NEUT % 71.2 % (47.0-73.0); PLATELET COUNT AUTOMATED 213 10*3/uL (130-400); RED BLOOD COUNT 4.97 10*6/uL (4.50-5.90); RED CELL DISTRI WIDTH 15.3 % (0-14.5); WHITE BLOOD COUNT 6.1 10*3/uL (4.8-10.8)
[2019-05-14 09:31] LABS: BUN 9 mg/dl (7-24); CHLORIDE 105 mmol/L (98-107); CREATININE 1.01 mg/dL (0.70-1.30); PHOSPHOROUS 3.8 mg/dL (2.5-4.9); SODIUM 143 mmol/L (136-145)
--- NOTE | 2019-05-14 12:13 | NUR ---
Farm Product Purchaser in to talk to patient. Patient states lives at home with his girlfriend. There are 20 steps in the home. Physician: Dr. Ji Tom [facility]acy: [facility] Home health services: none Patient's level of ADLs: INDEPENDENT Patient has working utilities: yes DME: none Follow-up physician's appointment after d/c: will be made by the hospitalist nurse director upon discharge Does patient want to access PORTAL?: no Discharge plan discussed with patient. He lives at home with his girlfriend. He is independent in his ADLs and ambulation. Discussed home health care services and he denies any home needs at this time. When medically stable he will be discharged to home. His girlfriend will provide transportation on discharge. MEKHI MCCORD
--- NOTE | 2019-05-14 12:16 | NUR ---
CONSULT CALLED TO DR TANNER
[2019-05-15] VITALS: BP 132/66
--- NOTE | 2019-05-15 01:28 | NUR ---
24 HR chart check completed.
[2019-05-15 08:33] LABS: BASO % 0.6 % (0.0-1.0); EOS # 0.3 10*3/uL (0.0-0.4); EOS % 4.9 % (1.0-4.0); HEMATOCRIT 52.6 % (42.0-52.0); HEMOGLOBIN 16.2 g/dl (14.0-18.0); LYMPH # 1.2 10*3/uL (1.3-4.4); LYMPH % 17.6 % (27.0-41.0); MEAN CORPUSCULAR HGB 30.8 pg (27.0-31.0); MEAN CORPUSCULAR HGB CONC 30.8 g/dl (33.0-37.0); MEAN PLATELET VOLUME 10.8 fl (9.6-12.3); MONO # 0.6 10*3/uL (0.1-1.0); NEUT # 4.7 10*3/uL (2.3-7.9); NEUT % 68.6 % (47.0-73.0); PLATELET COUNT AUTOMATED 217 10*3/uL (130-400); RED BLOOD COUNT 5.26 10*6/uL (4.50-5.90); RED CELL DISTRI WIDTH 15.3 % (0-14.5); WHITE BLOOD COUNT 6.9 10*3/uL (4.8-10.8)
[2019-05-15 08:44] LABS: ALBUMIN 3.1 gm/dl (3.1-4.5); ALKALINE PHOSPHATASE 159 U/L (45-117); BUN 9 mg/dl (7-24); CHLORIDE 103 mmol/L (98-107); POTASSIUM 3.9 mmol/L (3.5-5.1); SGOT/AST 24 IU/L (3-35); SGPT/ALT 29 U/L (12-78); SODIUM 141 mmol/L (136-145); TOTAL PROTEIN 7.2 gm/dL (6.4-8.2)
[2019-05-15 12:00] VITALS: BP 131/68
--- NOTE | 2019-05-15 13:22 | NUR ---
PHYSICAL THERAPY PATIENT SEEN TODAY IN ROOM FOR PT SCREEN DUE TO PT REFERRAL HOWEVER IS FOUND TO BE UP AD [facility] AND (I) WITH ALL MOBILITY THUS NO PT SERVICES ARE INDICATED AT THIS TIME. THANK YOU FOR REFERRAL [facility] PT
[2019-05-15 16:00] VITALS: BP 121/54
[2019-05-15 20:00] VITALS: BP 113/54
[2019-05-16] VITALS: BP 124/59
--- NOTE | 2019-05-16 | NUR ---
PT RESTING IN BED. RESPIRATIONS EASY AND UNLABORED. SUPPLEMENTAL OXYGEN IN PLACE. NO S/S OF DISTRESS NOTED AT THIS TIME. ALL NEEDS MET, ALL SAFETY MEASURES IN PLACE. CALL LIGHT IN REACH.
--- NOTE | 2019-05-16 05:05 | NUR ---
AM MEDICATIONS TAKEN WITH EASE. NO NEW S/S OF DISTRESS. NO COMPLAINTS VOICED. WILL CONTINUE TO MONITOR PT. CALL LIGHT IN REACH.
[2019-05-16 06:22] LABS: BUN 11 mg/dl (7-24); CHLORIDE 103 mmol/L (98-107); CREATININE 1.03 mg/dL (0.70-1.30); POTASSIUM 3.7 mmol/L (3.5-5.1); SODIUM 143 mmol/L (136-145)
[2019-05-16 08:00] VITALS: BP 136/84
[2019-05-16] MEDS ORDERED: KEFLEX500 M1 PO (10:43)
--- NOTE | 2019-05-16 11:22 | NUR ---
PATIENT DISCHARGED TO HOME.
== END 2019-05-16 11:22 | disposition home or self-care (01) | DRG 871 ==
LOC: ED 18:39 → 4E 22:00 → EDHOLD 22:00 → 4E 05-14 09:59
PROVIDERS: Emergency Medicine; Internal Medicine; ADMIT Internal Medicine
DX: A41.9 Sepsis, unspecified organism (principal); I50.33 Acute on chronic diastolic (congestive) heart failure; J96.01 Acute respiratory failure with hypoxia; L03.115 Cellulitis of right lower limb; F33.9 Major depressive disorder, recurrent, unspecified; I24.8 Other forms of acute ischemic heart disease; Z68.43 Body mass index [BMI] 50.0-59.9, adult; I50.813 Acute on chronic right heart failure; G47.33 Obstructive sleep apnea (adult) (pediatric); R40.0 Somnolence; E66.9 Obesity, unspecified; R65.20 Severe sepsis without septic shock; I11.0 Hypertensive heart disease with heart failure; I48.0 Paroxysmal atrial fibrillation; F41.9 Anxiety disorder, unspecified; R73.9 Hyperglycemia, unspecified; F17.210 Nicotine dependence, cigarettes, uncomplicated; Z71.6 Tobacco abuse counseling; Z88.0 Allergy status to penicillin; Z81.8 Family history of other mental and behavioral disorders; I25.2 Old myocardial infarction; Z79.82 Long term (current) use of aspirin; Z79.899 Other long term (current) drug therapy